=== PATIENT | male | born 1975 | race Two or more races ===

== ENCOUNTER 2020-11-06 04:44 | Emergency (ER) | payer SELFPAY ==
[~2020-11-06] VITALS: Ht 182.9 cm; Wt 84.0 kg
[2020-11-06] MEDS ORDERED: ASPIRIN 325MG EC TABLET PO ONE (06:30)
[2020-11-06 06:43] LABS: BASOPHILS % 0.4 % (0.0-2.0); EOSINOPHILS % 0.8 % (0.0-5.0); HEMATOCRIT. 41.3 % (42.0-52.0); HEMOGLOBIN. 14.3 g/dL (14.0-18.0); LYMPHOCYTES % 18.4 % (20.0-50.0); MEAN CORPUSCULAR HEMOGLOBIN 32.1 pg (28.0-32.0); MEAN CORPUSCULAR VOLUME 92.7 fL (80.0-94.0); MEAN PLATELET VOLUME 8.1 fl (7.4-10.4); MONOCYTES % 5.6 % (2.0-8.0); NEUTROPHILS % 74.8 % (40.0-76.0); PLATELET 297 x1000/uL (130-400); RED BLOOD CELL COUNT 4.46 mill/uL (4.7-6.1); RED CELL DISTRIBUTION WIDTH 14.5 % (11.6-14.6)
[2020-11-06 06:48] LABS: CHLORIDE 106 mEq/L (98-107)
[2020-11-06 06:50] LABS: CLARITY URINE CLEAR (CLEAR); COLOR URINE YELLOW (YELLOW); KETONES URINE NEGATIVE (NEGATIVE); LEUKOCYTE ESTERASE URINE NEGATIVE (NEGATIVE); NITRITE URINE NEGATIVE (NEGATIVE); OCCULT BLOOD URINE NEGATIVE (NEGATIVE); PH URINE 6.5 (4.5-8.0); PROTEIN URINE NEGATIVE (NEGATIVE); SPECIFIC GRAVITY URINE 1.004 (1.005-1.030)
[2020-11-06 06:53] LABS: ETHANOL BLOOD < 10 mg/dL
[2020-11-06 07:11] LABS: *AMPHETAMINES SCREEN URINE PRESUMTIVE POSITIVE (NEGATIVE); *BARBITURATES SCREEN URINE NEGATIVE (NEGATIVE); *BENZODIAZEPINES SCREEN URINE NEGATIVE (NEGATIVE); *COCAINE SCREEN URINE NEGATIVE (NEGATIVE); METHADONE URINE SCREEN NEGATIVE (NEGATIVE); OPIATES URINE SCREEN NEGATIVE (NEGATIVE); PHENCYCLIDINE URINE SCREEN NEGATIVE (NEGATIVE)
[2020-11-06 07:13] LABS: CANNABINOID URINE SCREEN NEGATIVE (NEGATIVE)
[2020-11-06 09:15] VITALS: BP 147/90
== END 2020-11-06 09:15 | disposition home or self-care (01) ==
LOC: ER 04:44
DX: R07.89 Other chest pain (principal); F15.10 Other stimulant abuse, uncomplicated; F17.200 Nicotine dependence, unspecified, uncomplicated; F12.10 Cannabis abuse, uncomplicated; E11.9 Type 2 diabetes mellitus without complications; I10 Essential (primary) hypertension; Z20.822 Contact with and (suspected) exposure to COVID-19
CPT/HCPCS: 36415; 71045; 80053; 80305; 80307; 80320; 80329; 81003; 82962; 84484; 85025; 93005; 99285; C9803; U0003; U0005; G0480